=== PATIENT | female | born 1945 | race Caucasian/White ===

== ENCOUNTER → 2016-10-24 | Day surgery (SDC) | payer MEDICARE ==
[~2016-10-24] MED LIST: Acetaminophen TAB* 325 MG PO PRN; Buffered Lidocaine 1% SYR 3ML* 3 ML/SYR SYRINGE INTRADERM ONE; Buffered Lidocaine 1% SYR 3ML* 3 ML/SYR SYRINGE ONE; Cyclopentolate 1% OPTH.SOL* 2 ML BTL ONE; Flurbiprofen 0.03% OPTH.SOL* 2.5 ML BTL ONE; Lidocaine 1% MPF* 2 ML VIAL ONE; Lidocaine 2% EPI 1:200000 MPF* 20 ML VIAL ONE; Midazolam* 1 MG/ML 2 ML VIAL (2 MG) ONE; Neomycin/Polymy/Dex OPTH.SUSP* MAXITROL 0.1% 5 ML ONE; Phenylephrine 2.5% OPTH.SOL* 2 ML BTL ONE; Povidone Iodine 5% OPTH* 30 ML BTL ONE; Proparacaine 0.5% OPHTH.SOL* 15 ML BTL ONE; acetaZOLAMIDE TAB* 250 MG ONE; fentaNYL* 50 MCG/ML 2 ML VIAL (100 MCG VIAL) ONE
[2016-10-24 09:04] VITALS: BP 120/59
--- NOTE | 2016-10-24 10:04 | OP ---
DATE OF OPERATION: 10/24/16 - [facility] DATE OF : 41 SURGEON: Chan Adler M.D. PREOPERATIVE DIAGNOSIS: Cataract, right eye. POSTOPERATIVE DIAGNOSIS: Cataract, right eye. OPERATIVE PROCEDURE: Phacoemulsification, right eye, with IOL and CTR. DESCRIPTION OF PROCEDURE: The patient was brought to the operating room after being given 1/2% Alcaine with epinephrine drops in the preoperative area. The eye was prepped and draped in the usual sterile fashion. Sterile drape and eyelid speculum were placed. Again, topical 1/2% Alcaine with epinephrine was given. A paracentesis incision was made at the 9 o'clock position with the No.75 blade. Clear cornea incision 2.2 x 2.2-mm was created at the 12 o'clock position starting at the anterior limbus using the 2.2-mm keratome. The anterior chamber was irrigated with 0.4 mL of 1% non-preservative intracameral lidocaine and filled with DisCoVisc. A capsulorrhexis was completed using the cystotome and the Utrata forceps. Hydrodissection was performed with balanced salt solution. The lens nucleus was removed with the Phacoemulsification handpiece without incident. Cortex was removed with the irrigation-aspiration handpiece. The capsular bag was re-inflated using DisCoVisc and an [id number] implant was inserted with the shooter, oriented to the 12-degree meridian. Horizontal reference amaro were made with the patient in the seated position in the preoperative area. Prior to capsulorrhexis, a Malyugin ring was used to dilate the pupil and removed after insertion of the artificial lens. A capsular tension ring was also inserted after the artificial lens in the bag using its shooter, it was an [id number]. The irrigation-aspiration handpiece was used to remove all residual DisCoVisc. The eye was refilled with balanced salt solution and the wound checked and found to be watertight. Topical Maxitrol drops were given. 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 [id number]/[facility] #: [id number] MTDD
== END | disposition home or self-care (01) ==
LOC: OREAST 06:37
PROVIDERS: ATTEND Specialist
DX: H25.811 Combined forms of age-related cataract, right eye (principal); H40.1414 Capsular glaucoma with pseudoexfoliation of lens, right eye, indeterminate stage; Q13.2 Other congenital malformations of iris
CPT/HCPCS: A9270-GY; J2250; J3010; V2787

== ENCOUNTER 2017-06-20 11:12 | Emergency (ER) | payer MEDICARE ==
[2017-06-20 11:25] VITALS: BP 111/71
--- NOTE | 2017-06-20 12:42 | RAD ---
INDICATION: Second toe pain right foot COMPARISON: None TECHNIQUE: AP, lateral, and oblique views were obtained. FINDINGS: The bony structures, joint spaces, and soft tissues are normal for age. IMPRESSION: NO ACUTE BONY FINDINGS
--- NOTE | 2017-06-20 12:49 | UC ---
Alejandro Underwood Angela, scribed for [facility] bryant MD on 06/20/17 at 1151 . Lower Extremity/Ankle HPI - HPI Summary HPI Summary: In Room Note: This pt is a 72 y/o female presenting to [facility] c/o pain under right foot, specifically 2nd toe x3 weeks. Pt reports she bought hiking boots and she started to have this irritation right after a hike. She stopped using the hiking boots and went on a hike 5 days ago and had no problems. Yesterday and today her pain has become uncomfortable. Pt denies any other injury, leg pain, abd pain, back pain. She denies PMHx of plantar warts. PMHx: osteopenia. She is a retired nurse practitioner. MDs Note: Vital signs are stable, afebrile. 5/10 right plantar foot pain. Visit history: osteopenia. Otherwise noncontributory. Nurses Note: c/o pain to the plantar area under the R 2nd toe that has been going on for the past 2-3 weeks. Denies any injury or trauma. States she got a new pair of hiking boots and pain started after wearing the boots. She does state a brief period of pain relief with it returning yesterday. - History of Current Complaint Chief Complaint: UCLowerExtremity Stated Complaint: FOOT PAIN Time Seen by Provider: 06/20/17 11:41 Hx Obtained From: Patient Onset/Duration: Lasting Weeks Able to Bear Weight: Yes - Allergies/Home Medications Allergies/Adverse Reactions: Allergies Allergy/AdvReac Type Severity Reaction Status Date / Time No Known Allergies Allergy Verified 06/20/17 11:25 PMH/Surg Hx/FS Hx/Imm Hx - Additional Past Medical History Additional PMH: PMHx: osteopenia, high cholesterol Other Endocrine History: DENIES: diabetes Other Cardiovascular History: DENIES: HTN GI/ History: Gastroesophageal Reflux - Surgical History Surgical History: Yes Surgery Procedure, Year, and Place: TONSILLECTOMY - Family History Known Family History: Positive: Other - Paternal uncle: fatal heart attack at 50 y/o. Mother: osteoporosis - Social History Occupation: Retired - [employer] / [employer] Alcohol Use: Occasionally Substance Use Type: None Smoking Status (MU): Never Smoked Tobacco Have You Smoked in the Last Year: No Review of Systems Constitutional: Negative Skin: Negative Eyes: Negative ENT: Negative Respiratory: Negative Cardiovascular: Negative Gastrointestinal: Negative Genitourinary: Negative Motor: Negative Neurovascular: Negative Musculoskeletal: Other: - pain on the plantar aspect of the right foot Neurological: Negative All Other Systems Reviewed And Are Negative: Yes Physical Exam Triage Information Reviewed: Yes Vital Signs: Initial Vital Signs Temp 98.3 F 06/20/17 11:18 Pulse 65 06/20/17 11:18 Resp 16 06/20/17 11:18 BP 111/71 06/20/17 11:18 Pulse Ox 100 06/20/17 11:18 Vital Signs Reviewed: Yes - Additional Comments The patient is well-nourished in no acute distress and in no acute pain. The skin is warm and dry and skin color reflects adequate perfusion. HEENT: The head is normocephalic and atraumatic. The pupils are equal and reactive. The conjunctivae are clear and without drainage. Nares are patent and without drainage. Mouth reveals moist mucous membranes and the throat is without erythema and exudate. The external ears are intact. The ear canals are patent and without drainage. The tympanic membranes are intact. Neck is supple with full range of motion and non-tender. Respiratory: Chest is non-tender. Lungs are clear to auscultation and breath sounds are symmetrical and equal. Cardiovascular: Hear is regular rate and rhythm. There is no murmur or rub auscultated. There is no peripheral edema and pulses are symmetrical and equal. Abdomen: The abdomen is soft and non-tender. There are normal bowel sounds heard in all four quadrants and there is no organomegaly palpated. Musculoskeletal: There is no back pain noted. Extremities are non-tender with full range of motion. There is good capillary refill. There is no peripheral edema or calf tenderness elicited. ON THE RIGHT FOOT THERE IS NO EVIDENT DEFORMITY OR CELLULITIS. THERE IS POINT TENDERNESS ON THE VOLAR BASE OF THE SECOND TOE AND THE AREA OF THE METATARSOPHALANGEAL JOINT. Neurological: Patient is alert and oriented to person, place and time. The patient has symmetrical motor strength in all four extremities. Psychiatric: The patient has an appropriate affect and does not exhibit any anxiety or depression. Diagnostics - Radiology Right Foot XR Xray Interpretation: No Acute Changes - IMPRESSION: No acute bony findings. ED physician has reviewed this radiology report and agrees. Radiology Interpretation Completed By: Radiologist Lower Extremity Course/Dx - Course Course Of Treatment: Medications have been included in the original chart and reviewed. Normal BP reading and no follow-up instructions required. On exam, ON THE RIGHT FOOT THERE IS NO EVIDENT DEFORMITY OR CELLULITS. THERE IS POINT TENDERNESS ON THE VOLAR BASE OF THE SECOND TOE AND THE AREA OF THE METATARSOPHALANGEAL JOINT. XR shows no acute bony findings. - Differential Dx/Diagnosis Differential Diagnosis/HQI/PQRI: Contusion, Fracture (Closed) Provider Diagnoses: Right foot contusion Discharge - Discharge Plan Condition: Stable Disposition: HOME Patient Education Materials: Foot Contusion (ED) Referrals: Gonsalo Bray MD [Primary Care Provider] - Additional Instructions: WE DISCUSSED: This discomfort is most likely do to pressure from your boot and small repetitive injuries. Re check if the pain continues in 2 weeks. Your x ray was normal. The documentation as recorded by the Alejandro russell Angela accurately reflects the service I personally performed and the decisions made by me, Miguel Angel Carbajal MD.
== END 2017-06-20 12:52 | disposition home or self-care (01) ==
LOC: UCEAST 11:12
DX: S90.31XA Contusion of right foot, initial encounter (principal); Y93.01 Activity, walking, marching and hiking
CPT/HCPCS: 99212; G0463

== ENCOUNTER 2017-07-17 08:24 | Day surgery (SDC) | payer MEDICARE ==
[~2017-07-17 08:24] MED LIST changes: +Buffered Lidocaine 0.9% SYRIN* 5 ML/SYR SYRINGE INTRADERM ONE; -Buffered Lidocaine 1% SYR 3ML* 3 ML/SYR SYRINGE INTRADERM ONE; -Buffered Lidocaine 1% SYR 3ML* 3 ML/SYR SYRINGE ONE; -Cyclopentolate 1% OPTH.SOL* 2 ML BTL ONE; -Flurbiprofen 0.03% OPTH.SOL* 2.5 ML BTL ONE; -Lidocaine 1% MPF* 2 ML VIAL ONE; -Lidocaine 2% EPI 1:200000 MPF* 20 ML VIAL ONE; -Midazolam* 1 MG/ML 2 ML VIAL (2 MG) ONE; -Neomycin/Polymy/Dex OPTH.SUSP* MAXITROL 0.1% 5 ML ONE; -Phenylephrine 2.5% OPTH.SOL* 2 ML BTL ONE; -Povidone Iodine 5% OPTH* 30 ML BTL ONE; -Proparacaine 0.5% OPHTH.SOL* 15 ML BTL ONE; -acetaZOLAMIDE TAB* 250 MG ONE; -fentaNYL* 50 MCG/ML 2 ML VIAL (100 MCG VIAL) ONE
[2017-07-17] MEDS ORDERED: Midazolam* 1 MG/ML 2 ML VIAL (2 MG) ONE (11:08)
[2017-07-17] MEDS ORDERED: fentaNYL* 50 MCG/ML 2 ML VIAL (100 MCG VIAL) ONE (11:13)
[2017-07-17 11:59] VITALS: BP 102/50
[2017-07-17] MEDS ORDERED: Ketorolac 0.5% OPHTH (NF) 0.5 % 5 ML BTL ONE (13:46)
[2017-07-17] MEDS ORDERED: Lidocaine 2% EPI 1:200000 MPF* 20 ML VIAL ONE (13:47)
[2017-07-17] MEDS ORDERED: Phenylephrine 2.5% OPTH.SOL* 2 ML BTL ONE (13:47)
[2017-07-17] MEDS ORDERED: Buffered Lidocaine 0.9% SYRIN* 5 ML/SYR SYRINGE ONE (13:47)
[2017-07-17] MEDS ORDERED: acetaZOLAMIDE TAB* 250 MG ONE (13:47)
[2017-07-17] MEDS ORDERED: Lidocaine 1% MPF* 2 ML VIAL ONE (13:47)
[2017-07-17] MEDS ORDERED: Cyclopentolate 1% OPTH.SOL* 2 ML BTL ONE (13:47)
[2017-07-17] MEDS ORDERED: Neomycin/Polymy/Dex OPTH.SUSP* MAXITROL 0.1% 5 ML ONE (13:47)
[2017-07-17] MEDS ORDERED: Proparacaine 0.5% OPHTH.SOL* 15 ML BTL ONE (13:47)
[2017-07-17] MEDS ORDERED: Povidone Iodine 5% OPTH* 30 ML BTL ONE (13:47)
--- NOTE | 2017-07-17 22:33 | OP ---
DATE OF OPERATION: 07/17/17 [facility] DATE OF : 41 SURGEON: Chan Adler M.D. PREOPERATIVE DIAGNOSIS: Cataract, left eye. POSTOPERATIVE DIAGNOSIS: Cataract, left eye. OPERATIVE PROCEDURE: Phacoemulsification, left eye with IOL DESCRIPTION OF PROCEDURE: The patient was brought to the operating room after being given 1/2% Alcaine with epinephrine drops in the preoperative area. The eye was prepped and draped in the usual sterile fashion. Sterile drape and eyelid speculum were placed. Again, topical 1/2% Alcaine with epinephrine was given. A paracentesis incision was made at the 3 o'clock position with the No.75 blade. Clear cornea incision 2.2 x 2.2-mm was created at the 6 o'clock position starting at the anterior limbus using the 2.2-mm keratome. The anterior chamber was irrigated with 0.4 mL of 1% non-preservative intracameral lidocaine and filled with DisCoVisc. A capsulorrhexis was completed using the cystotome and the Utrata forceps. Hydrodissection was performed with balanced salt solution. The lens nucleus was removed with the Phacoemulsification handpiece without incident. Cortex was removed with the irrigation-aspiration handpiece. The capsular bag was re-inflated using DisCoVisc and an [id number] implant was inserted with the shooter. The irrigation-aspiration handpiece was used to remove all residual DisCoVisc. The eye was refilled with balanced salt solution and the wound checked and found to be watertight. Topical Maxitrol drops were given. [id number]/[facility] #: [id number] [facility]
== END 2017-07-17 11:45 | disposition home or self-care (01) ==
LOC: OREAST 08:24
PROVIDERS: ATTEND Specialist
DX: H25.812 Combined forms of age-related cataract, left eye (principal); H40.1414 Capsular glaucoma with pseudoexfoliation of lens, right eye, indeterminate stage
CPT/HCPCS: A9270-GY; J2250; J3010; V2632

== ENCOUNTER 2019-06-22 20:12 | Emergency (ER) | payer MEDICARE ==
--- NOTE | 2019-06-22 20:32 | UC ---
Lower Extremity/Ankle HPI - HPI Summary HPI Summary: 74 yo female presents with RIGHT great toe injury. She tells me that this afternoon she dropped a large bowl on her right great toe. Since that time has had pain that is worse with ambulation and weight bearing. She took tylenol with mild relief. - History of Current Complaint Chief Complaint: UCLowerExtremity Stated Complaint: FOOT INJURY Time Seen by Provider: 06/22/19 20:32 Hx Obtained From: Patient Onset/Duration: Sudden Onset Severity Initially: Mild Severity Currently: Mild Pain Intensity: 4 Pain Scale Used: 0-10 Numeric - Allergies/Home Medications Allergies/Adverse Reactions: Allergies Allergy/AdvReac Type Severity Reaction Status Date / Time No Known Allergies Allergy Verified 06/22/19 20:33 PMH/Surg Hx/FS Hx/Imm Hx Endocrine History: Dyslipidemia GI/ History: Gastroesophageal Reflux - Surgical History Surgical History: Yes Surgery Procedure, Year, and Place: TONSILLECTOMY AND ADENOIDECTOMY. 10/2016- CATARACT RIGHT EYE. LESION REMOVED FROM SKIN WITH LOCAL ANESTHESIA - Family History Known Family History: Positive: Other - Paternal uncle: fatal heart attack at 50 y/o. Mother: osteoporosis - Social History Lives: With Family Alcohol Use: Occasionally Substance Use Type: None Smoking Status (MU): Never Smoked Tobacco Have You Smoked in the Last Year: No Review of Systems All Other Systems Reviewed And Are Negative: No Constitutional: Positive: Negative Skin: Positive: Negative Respiratory: Positive: Negative Cardiovascular: Positive: Negative Neurovascular: Positive: Negative Musculoskeletal: Positive: Other: - Right great toe pain Neurological: Positive: Negative Psychological: Positive: Negative Physical Exam - Summary Physical Exam Summary: GENERAL: NAD. WDWN. No pain distress. SKIN: No rashes, sores, lesions, or open wounds. CHEST: No accessory muscle use. Breathing comfortably and in no distress. CV: Pulses intact PT and DP. Cap refill <2seconds MSK: RIGHT GREAT TOE: Mild TTP about MTP. Chronic bony deformity. No open wound. FROM. No edema. NEURO: Alert. Sensations intact and symmetric B/L LEs PSYCH: Age appropriate behavior. Triage Information Reviewed: Yes Vital Signs: Vital Signs: Temp Pulse Resp BP Pulse Ox 96.9 F 66 18 122/52 100 06/22/19 20:29 06/22/19 20:29 06/22/19 20:29 06/22/19 20:29 06/22/19 20:29 Vital Signs Reviewed: Yes Diagnostics - Radiology Toe Radiology Interpretation Completed By: Radiologist Summary of Radiographic Findings: No fx Lower Extremity Course/Dx - Course Course Of Treatment: XR negative on wet read Suspect toe contusion Advised to rest, apply ice, and continue tylenol for discomfort - Differential Dx/Diagnosis Provider Diagnosis: Toe contusion Discharge ED - Sign-Out/Discharge Documenting (check all that apply): Patient Departure All imaging exams completed and their final reports reviewed: No - Discharge Plan Condition: Stable Disposition: HOME Patient Education Materials: Foot Contusion (ED) Referrals: Damari Ma MD [Primary Care Provider] - Additional Instructions: If you develop a fever, shortness of breath, chest pain, new or worsening symptoms - please call your PCP or go to the ED immediately. The X-Ray of your toe appears normal this evening. I suspect this is a bruise that will heal with time and rest. The radiologist will read your X-Ray in the morning and if there is a change, we will call you and let you know. - Billing Disposition and Condition Condition: STABLE Disposition: Home
[2019-06-22 20:33] VITALS: BP 122/52
--- NOTE | 2019-06-23 10:19 | UC ---
- Progress Note Progress Note: XR: IMPRESSION: OSTEOARTHRITIS. NO ACUTE OSSEOUS INJURY. IF SYMPTOMS PERSIST, RECOMMEND REPEAT IMAGING. R0 wet read correct Course/Dx - Diagnoses Provider Diagnoses: Toe contusion Discharge ED - Sign-Out/Discharge Documenting (check all that apply): Post-Discharge Follow Up All imaging exams completed and their final reports reviewed: Yes - Discharge Plan Condition: Stable Disposition: HOME Patient Education Materials: Foot Contusion (ED) Referrals: Damari Ma MD [Primary Care Provider] - Additional Instructions: If you develop a fever, shortness of breath, chest pain, new or worsening symptoms - please call your PCP or go to the ED immediately. The X-Ray of your toe appears normal this evening. I suspect this is a bruise that will heal with time and rest. The radiologist will read your X-Ray in the morning and if there is a change, we will call you and let you know. - Billing Disposition and Condition Condition: STABLE Disposition: Home
--- NOTE | 2019-06-23 10:20 | UC ---
- Progress Note Progress Note: RN to call pt. No acute osseous injury. + osteoarthritis (this was not commented on avs). no acute management changes at this time, but encourage routine f/u with PCP. Course/Dx - Diagnoses Provider Diagnoses: Toe contusion Discharge ED - Sign-Out/Discharge Documenting (check all that apply): Patient Departure, Post-Discharge Follow Up All imaging exams completed and their final reports reviewed: Yes - Discharge Plan Condition: Stable Disposition: HOME Patient Education Materials: Foot Contusion (ED) Referrals: Damari Ma MD [Primary Care Provider] - Additional Instructions: If you develop a fever, shortness of breath, chest pain, new or worsening symptoms - please call your PCP or go to the ED immediately. The X-Ray of your toe appears normal this evening. I suspect this is a bruise that will heal with time and rest. The radiologist will read your X-Ray in the morning and if there is a change, we will call you and let you know. - Billing Disposition and Condition Condition: STABLE Disposition: Home
== END 2019-06-22 21:22 | disposition home or self-care (01) ==
LOC: UCEAST 20:12
DX: S90.111A Contusion of right great toe without damage to nail, initial encounter (principal); W22.8XXA Striking against or struck by other objects, initial encounter; Y92.9 Unspecified place or not applicable; E78.5 Hyperlipidemia, unspecified; K21.9 Gastro-esophageal reflux disease without esophagitis
CPT/HCPCS: 99213; G0463